=== PATIENT | female | born 1965 | race Caucasian/White ===

== ENCOUNTER 2017-10-06 18:36 | Emergency (ER) | payer BC ==
[2017-10-06 19:22] LABS: CHLORIDE,CL 102 mmol/L (98-115); SODIUM,NA 140 mmol/L (136-145)
--- NOTE | 2017-10-06 19:38 | EDM.PDOC ---
ED HPI GENERAL MEDICAL PROBLEM - General Chief Complaint: Abdominal Pain Stated Complaint: ABDOMINAL PAIN Time Seen by Provider: 10/06/17 19:30 Source of Information: Reports: Patient History Limitations: Reports: No Limitations - History of Present Illness INITIAL COMMENTS - FREE TEXT/NARRATIVE: Patient is a 51-year-old female who presents to the emergency department this evening with a complaint of abdominal pain. Patient states that at about 1600 today, she had sharp, burning type sensation, in epigastric region, that waxed and waned. Patient states she's had similar episodes over last couple years, but these usually resolve when she bends over or stands up. She is not sure if this happens after eating or before eating. Has no recollection if certain foods cause the symptoms. Was seen by a physician restaurant assistant manager previously and condition was thought to be caused by an ulcer. However, she had no testing to confirm. She does take Nexium 2 weeks on and then a one-week break and then continues again with same cycle. Patient denies fever, nausea, vomiting, diarrhea, blood in stool, fever, chest pain, shortness of breath, or lower extremity edema. Onset: Today Onset Date: 10/06/17 Onset Time: 16:00 Duration: Resolved Prior to Arrival Location: Reports: Abdomen Quality: Reports: Burning, Sharp Severity: Moderate Improves with: Reports: Other (Spontaneously without medication) Associated Symptoms: Reports: No Other Symptoms Upper Abdomen Pain Score (Numeric/FACES): 0 - Related Data Allergies Allergy/AdvReac Type Severity Reaction Status Date / Time No Known Drug Allergies Allergy Other Verified 10/06/17 18:46 Home Meds: Home Meds Calcium Carbonate/Vitamin D3 [Calcium 500 + Vit D Caplet] 2 tab PO DAILY [History] Cyanocobalamin (Vitamin B-12) [B-12] 1 tab PO DAILY 10/06/17 [History] Esomeprazole Magnesium [Nexium] 40 mg PO DAILY 10/06/17 [History] Multivit, Ca, Min/FA/Soy Isofl [One-A-Day Menopause Formula Tb] 1 tab PO DAILY 10/06/17 [History] [place]-3/DHA/Epa/Fish Oil [Fish Oil 1,000 mg Softgel] 1 cap PO DAILY 10/06/17 [ History] [place]'s Wort 300 mg PO DAILY 10/06/17 [History] [place] Cure Cumin * 1 cap PO DAILY 10/06/17 [History] ED ROS GENERAL - Review of Systems Review Of Systems: ROS reveals no pertinent complaints other than HPI. Constitutional: Reports: No Symptoms HEENT: Reports: No Symptoms Respiratory: Reports: No Symptoms Cardiovascular: Reports: No Symptoms Endocrine: Reports: No Symptoms GI/Abdominal: Reports: Abdominal Pain : Reports: No Symptoms Musculoskeletal: Reports: No Symptoms Skin: Reports: No Symptoms Neurological: Reports: No Symptoms Psychiatric: Reports: No Symptoms Hematologic/Lymphatic: Reports: No Symptoms Immunologic: Reports: No Symptoms ED EXAM, GI/ABD - Physical Exam Exam: See Below Exam Limited By: No Limitations General Appearance: Alert, WD/WN, No Apparent Distress Throat/Mouth: Normal Inspection, Normal Oropharynx, No Airway Compromise Head: Atraumatic, Normocephalic Neck: Normal Inspection, Supple Respiratory/Chest: No Respiratory Distress, Lungs Clear, Normal Breath Sounds, No Accessory Muscle Use, Chest Non-Tender Cardiovascular: Normal Peripheral Pulses, Regular Rate, Rhythm, No Murmur GI/Abdominal Exam: Normal Bowel Sounds, Soft, Non-Tender, No Organomegaly, No Distention, No Abnormal Bruit, No Mass Back Exam: Normal Inspection. No: CVA Tenderness (L), CVA Tenderness (R) Extremities: Normal Inspection, No Pedal Edema Neurological: Alert, Oriented, Normal Cognition Psychiatric: Normal Affect, Normal Mood Skin Exam: Warm, Dry, Intact, Normal Color, No Rash Lymphatic: No Adenopathy Course - Vital Signs Last Recorded V/S: Last Vital Signs Temp 98.9 F 10/06/17 18:55 Pulse 91 10/06/17 18:55 Resp 18 10/06/17 18:55 BP 125/75 10/06/17 18:55 Pulse Ox 98 10/06/17 18:55 - Orders/Labs/Meds Labs: Laboratory Tests 10/06/17 10/06/17 Range/Units 19:00 19:00 WBC 7.0 (5.0-10.0) 10^3/uL RBC 5.06 (3.80-5.50) 10^6/uL Hgb 15.7 (12.0-16.0) g/dL Hct 46.1 (37.0-47.0) % MCV 91.0 (82.0-92.0) fL MCH 30.9 (27.0-31.0) pg MCHC 34.0 (32.0-36.0) g/dL RDW 11.7 (11.5-14.5) % Plt Count 154 (150-300) 10^3/uL MPV 8.3 (7.4-10.4) fL Neut % (Auto) 61.5 (50.0-70.0) % Lymph % (Auto) 31.7 (20.0-40.0) % [place] % (Auto) 3.9 (2.0-8.0) % Eos % (Auto) 2.2 (1.0-3.0) % Baso % (Auto) 0.7 (0.0-1.0) % Neut # (Auto) 4.3 (2.5-7.0) 10^3/uL Lymph # (Auto) 2.2 (1.0-4.0) 10^3/uL [place] # (Auto) 0.3 (0.1-0.8) 10^3/uL Eos # (Auto) 0.2 (0.1-0.3) 10^3/uL Baso # (Auto) 0.0 (0.0-0.1) 10^3/uL Sodium 140 (136-145) mmol/L Potassium 3.8 (3.3-5.3) mmol/L Chloride 102 (98-115) mmol/L Carbon Dioxide 21.8 (21.0-32.0) mmol/L Anion Gap 20.0 H (5-15) mmol/L BUN 19 (6-25) mg/dL Creatinine 0.77 (0.51-1.17) mg/dL Est Cr Clr Drug Dosing 78.65 mL/min Estimated GFR (MDRD) > 60 mL/min Glucose 134 mg/dL Calcium 8.7 (8.7-10.3) mg/dL Total Bilirubin 0.3 (0.2-1.0) mg/dL AST 22 (15-37) U/L ALT 34 (12-78) U/L Alkaline Phosphatase 85 (46-116) IU/L Total Protein 7.4 (6.4-8.2) g/dL Albumin 3.74 (3.00-4.80) g/dL Lipase 341 (73-393) U/L - Re-Assessments/Exams Free Text/Narrative Re-Assessment/Exam: 10/06/17 19:40 Patient afebrile, nontoxic appearing, vital signs stable, all lab values within normal limits. Recommend patient to try Zantac 150 twice a day, taken to account for that she consumes, and follow-up with her primary care provider. Departure - Departure Time of Disposition: 19:42 Disposition: Home, Self-Care 01 Condition: Good Clinical Impression: Abdominal pain Qualifiers: Abdominal location: epigastric Qualified Code(s): R10.13 - Epigastric pain Gastritis Qualifiers: Gastritis type: unspecified gastritis Chronicity: chronic Gastritis bleeding: without bleeding Qualified Code(s): K29.50 - Unspecified chronic gastritis without bleeding - Discharge Information Instructions: Gastritis, Adult, [id number], Helicobacter Pylori Antibodies Test Referrals: Guerita Monzon, [facility] [Primary Care Provider] - Forms: ED Department Discharge Additional Instructions: Follow-up at [facility] in the next 1-2 days for recheck. Switch antacid medicine to Zantac 150 mg twice a day. Return to emergency sooner if symptoms continue or worsen. - Assessment/Plan Assessment:: Abdominal pain, GERD Plan: Follow-up with PCP
== END 2017-10-06 19:54 | disposition home or self-care (01) ==
LOC: KA.ED 18:36
DX: K29.50 Unspecified chronic gastritis without bleeding (principal); K21.9 Gastro-esophageal reflux disease without esophagitis; Z79.899 Other long term (current) drug therapy
CPT/HCPCS: 36415; 80053; 83690; 85025; 99284